=== PATIENT | female | born 1965 | race American Indian/Alaskan Native ===

== ENCOUNTER 2016-04-19 06:17 | Inpatient (IN) | payer OTHER ==
[2016-04-16 13:22] LABS: Basophils % (Auto) 0.4 % (0.0-1.8); Eosinophils % (Auto) 1.1 % (0.0-4.3); Hematocrit 32.9 % (30.3-42.9); Mean Corpuscular HGB Conc 34 % (30-34); Mean Corpuscular Hemoglobin 34 pg (28-32); Mean Corpuscular Volume 101 fl (79-97); Platelet Count 191 K/mm3 (140-440); Red Blood Count 3.28 M/mm3 (3.65-5.03); Red Cell Distribution Width 15.8 % (13.2-15.2); White Blood Count 7.4 K/mm3 (4.5-11.0)
[2016-04-16 13:29] LABS: Alanine Aminotransferase 15 units/L (7-56); Albumin 3.9 g/dL (3.9-5); Albumin/Globulin Ratio 1.6 %; Alkaline Phosphatase 96 units/L (35-129); Anion Gap 19 mmol/L; BUN/Creatinine Ratio 15.71; Bilirubin,Total 0.2 mg/dL (0.1-1.2); Blood Urea Nitrogen 11 mg/dL (7-17); Calcium 9.1 mg/dL (8.4-10.2); Carbon Dioxide 25 mmol/L (22-30); Chloride 101.3 mmol/L (98-107); Glucose 85 mg/dL (65-100); INR 0.99 (0.87-1.13); Potassium 3.3 mmol/L (3.6-5.0); Sodium 142 mmol/L (137-145); Total Protein 6.4 g/dL (6.3-8.2)
--- NOTE | 2016-04-16 13:31 | Anesthesia Consultation ---
Anesthesia Consult and Med Hx Date of service: 04/16/16 - Airway Anesthetic Teeth Evaluation: Good ROM Head & Neck: Adequate Mental/Hyoid Distance: Adequate Mallampati Class: Class II Intubation Access Assessment: Probably Good - Pulmonary Exam CTA: Yes - Cardiac Exam Cardiac Exam: RRR - Pre-Operative Health Status ASA Pre-Surgery Classification: ASA3 Proposed Anesthetic Plan: General Nerve Block: PEC - Pre-Anesthesia Comment Pre-Anesthesia Comments: 04/06/2016 ECHO: EF 55-60%. ECG: NSR. - Pulmonary Hx Smoking: Yes (CIGARETTES < 1/2 PPD X 22 YRS, QUIT 4 YRS AGO) Hx Asthma: Yes Hx Sleep Apnea: No - Cardiovascular System Hx Hypertension: Yes (FOR 15+ YRS) - Central Nervous System Hx Psychiatric Problems: Yes (anxiety) - Other Systems Hx Cancer: Yes (RIGHT BREAST, DX: 10/2015, Chemo 03/2016) - Additional Comments Anesthesia Medical History Comments: NAC
--- NOTE | 2016-04-16 13:59 | XRay Report ---
CHEST 2 VIEWS INDICATION: Bilateral breast cancer. COMPARISON: 05/22/2011 FINDINGS: PA and lateral chest radiographs demonstrate normal cardiomediastinal silhouette. Slight left lung base scarring and left subclavian port tip near the confluence of the brachiocephalic veins is new. Otherwise clear lungs. Minimal aortic knob calcifications. Mild eventration of the right hemidiaphragm anteriorly. Slight thoracic spine degenerative spurring. CONCLUSION: No acute chest process with few incidental findings, as above. Thank you for the opportunity to participate in this patient's care.
[~2016-04-19 06:17] MED LIST: ANCEF/STERILE WATER 2 GM/20 ML IV NR; HYDROGEN PEROXIDE ONE; LACTATED RINGERS 1,000 ML IV SCH; LACTATED RINGERS 1,000 ML ONE; NACL 0.9% 500 ML 500 ML IV NR; NACL BACTERIOSTATIC INFILTRATI ONE; NEURONTIN PO NR; PEPCID PO NR; PROAIR IH NR; SUBLIMAZE IV NR; VERSED IV NR
[2016-04-19] MEDS ORDERED: DIPRIVAN 10 MG/ML IV ONE (06:39)
[2016-04-19] MEDS ORDERED: DILAUDID ONE ×3 (06:39→16:14)
[2016-04-19] MEDS ORDERED: XYLOCAINE MPF 2% ONE (06:42)
[2016-04-19] MEDS ORDERED: ZEMURON IV ONE ×3 (06:43→11:55)
[2016-04-19] MEDS ORDERED: BLOXIVERZ ONE (06:45)
[2016-04-19] MEDS ORDERED: ROBINUL ONE (06:45)
[2016-04-19] MEDS ORDERED: LACTATED RINGERS 1,000 ML IV SCH (07:00)
[2016-04-19] MEDS ORDERED: ANCEF/STERILE WATER 2 GM/20 ML IV NR ×2 (07:00→19:00)
--- NOTE | 2016-04-19 07:02 | Anesthesia Day of Surgery ---
Anesthesia Day of Surgery - Day of Surgery Patient Examined: Yes Patient H&P Reviewed: Yes Patient is NPO: Yes Cardiac Clearance: Yes (cardiac notes)
[2016-04-19] MEDS ORDERED: LOVENOX SUB-Q NR (07:22)
[2016-04-19] MEDS ORDERED: NACL P/F VIAL (10 ML) 10 ML ONE ×2 (07:32→10:01)
[2016-04-19] MEDS ORDERED: TRANSDERM-SCOP TD NR (08:00)
[2016-04-19] MEDS ORDERED: ALBURX 25% (ALBUMIN) IV NR (08:00)
[2016-04-19] MEDS ORDERED: HEPARIN 10,000 UNITS/10 ML IV ONE (08:36)
[2016-04-19] MEDS ORDERED: NACL 0.9% IR ONE (08:36)
[2016-04-19] MEDS ORDERED: PAPAVERINE IV ONE (08:36)
[2016-04-19] MEDS ORDERED: NACL P/F VIAL (10 ML) INFILTRATI ONE (08:36)
[2016-04-19] MEDS ORDERED: BACITRACIN TP ONE (08:36)
[2016-04-19] MEDS ORDERED: MARCAINE 0.25% INFILTRATI ONE (08:36)
[2016-04-19] MEDS ORDERED: NACL 0.9% 500 ML IV ONE (08:36)
[2016-04-19] MEDS ORDERED: WATER FOR IRRIG STERILE IR ONE (08:36)
[2016-04-19] MEDS ORDERED: ZOFRAN ONE (09:03)
[2016-04-19] MEDS ORDERED: LACTATED RINGERS 1,000 ML ONE ×2 (10:02→14:40)
[2016-04-19] MEDS ORDERED: ANCEF ONE ×2 (10:02→16:06)
[2016-04-19] MEDS ORDERED: NACL 0.9% 1000 ML 1,000 ML ONE ×3 (10:02→14:41)
--- NOTE | 2016-04-19 12:20 | Short Stay Summary ---
Short Stay Documentation Date of service: 04/19/16 - History H&P: obtained from office - Allergies and Medications Current Medications: Allergies No Known Allergies Allergy (Unverified 11/21/15 10:04) Home Medications Medication Instructions Recorded Confirmed Last Taken Type LORazepam [Ativan] 1 mg PO QDAY PRN 11/21/15 04/08/16 04/19/16 05:15 History Losartan/Hydrochlorothiazide 1 tab PO QDAY 11/21/15 04/08/16 04/19/16 05:15 History [Losartan-Hctz 100-12.5 mg Tab] amLODIPine [Norvasc] 2.5 mg PO DAILY 11/21/15 04/08/16 04/19/16 05:15 History Ergocalciferol (Vitamin D2) 50,000 mg PO 1XW 11/26/15 04/19/16 04/18/16 History [Vitamin D2] Escitalopram [Lexapro] 10 mg PO DAILY 04/08/16 04/08/16 Unknown History Active Medications Cefazolin Sodium (Ancef/Sterile Water 2 Gm/20 Ml) 2 gm IV PREOP NR Stop: 04/19/16 23:59 Enoxaparin Sodium (Lovenox) 40 mg SUB-Q ONCE NR Stop: 04/19/16 16:00 Last Admin: 04/19/16 07:31 Dose: 40 mg Fentanyl (Sublimaze) 100 mcg IV ONCE NR Stop: 04/19/16 23:59 Gabapentin (Neurontin) 300 mg PO PREOP NR Stop: 04/19/16 23:59 Last Admin: 04/19/16 06:52 Dose: 300 mg Lactated Ringer's (Lactated Ringers) 1,000 mls @ 75 mls/hr IV DIRECT ELIZABETH Last Admin: 04/19/16 07:00 Dose: 75 mls/hr Scopolamine (Transderm-Scop) 1 each TD PREOP NR Stop: 04/22/16 07:59 Last Admin: 04/19/16 07:30 Dose: 1 each - Brief post op/procedure progress note Date of procedure: 04/19/16 Pre-op diagnosis: 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 Loving) Follow up with: PERRY HIGUERA MD [Primary Care Provider] - 7 Days ROGER ROQUE MD [Staff Physician] - 7 Days
--- NOTE | 2016-04-19 12:34 | Operative Report ---
Operative Report Operative Report: Date of procedure: April 19, 2016 Pre-operative diagnosis: Multicentric right breast cancer of the upper outer quadrant Post-operative diagnosis: Same Procedure name(s): Left total mastectomy and right total mastectomy with right sentinel lymph node biopsy Surgeon: Torie Cao M.D. Cell Room Supervisor: Mr. Velasco Anesthesia: Gen. Findings: Right sentinel lymph node biopsy with negative findings for metastasis on frozen Complications: None Disposition: Operating room followed by Dr. Loving for VIV flap Indications for operative procedure: This is a 50-year-old postmenopausal abdomen [place] lady with multicentric right breast cancer of the upper outer quadrant. She completed neoadjuvant chemotherapy and was in need of surgical intervention. Patient wished to proceed with a prophylactic left total mastectomy as well and immediate plastic reconstructive surgery by Dr. Loving with VIV flap. Procedure in detail: Patient was taken to the operating and was laid supine. Gen. was administered. Bilateral breast and axilla were prepped and draped in the normal sterile operative fashion. Breast was injected at the right nipple with radioisotope. Timeout was performed. First began with the left breast. A skin incision was made around the nipple areolar complex with a 10 blade knife. The subcutaneous tissues were opened withthe aid of Bovie cautery. First began with raising of superior flap to the level of the clavicle followed by the lateral flap to the level of the latissmus muscle, medial flap to the level of the sternum and inferior flap to the level of the inframammary fold. The breast was appropriately removed from the pectoralis muscle with the aid of Bovie cautery. Hemostasis was obtained. Attention was then taken towards the right breast. Gamma probe was inserted into the axilla with identification of the sentinel lymph node. A skin incision was made around the nipple areolar complex with a 10 blade knife with the subcutaneous tissues opened with the aid of the Bovie cautery. First began with raising of superior flap to the level of the clavicle followed by raising of the medial flap to the level of the sternum and lateral flap to the latissmus muslce. Then proceeded with identification of the sentinel lymph node. The gamma probe was inserted into the axilla with sentinel lymph node appropriately identified and dissected free with the aid of Bovie cautery. Additional lymph node was also noted as well and was dissected free. Frozen section from both lymph nodes with findings negative for malignancy of 3 sentinel lymph nodes identified. Then continued with raising of the inferior flap to the level of the inframammary fold. The breast was appropriately removed from the pectoralis muscle without incident. Dr. Loving proceeded with bilateral VIV flap.
[2016-04-19] MEDS ORDERED: DECADRON ONE (15:38)
[2016-04-19] MEDS ORDERED: NARCAN 0.4 MG/1 ML IV PRN (16:52)
[2016-04-19] MEDS ORDERED: SODIUM CHLORIDE FLUSH SYRINGE 10 ML IV PRN (16:52)
[2016-04-19] MEDS ORDERED: ZOFRAN IV PRN (16:52)
[2016-04-19] MEDS ORDERED: TYLENOL PO PRN (16:52)
[2016-04-19] MEDS ORDERED: REGLAN PO PRN (16:52)
[2016-04-19] MEDS ORDERED: BENADRYL PO PRN (16:52)
[2016-04-19] MEDS ORDERED: HEPARIN SUB-Q ONE (17:15)
[2016-04-19] MEDS: DILAUDID PCA 6MG/30ML IV SCH (17:33)
--- NOTE | 2016-04-19 17:41 | Post Anesthesia Evaluation ---
- Post Anesthesia Evaluation Patient Participated: Yes Airway Patent: Yes Stable Respiratory Function: Yes Temp > 96.8F: Yes Pain Manageable: Yes Adequeate Hydration: Yes Anesthesia Complications: No Block Receding Appropriately: Not Applicable
[2016-04-19] MEDS ORDERED: ECOTRIN PO ONE ×3 (18:21→19:00)
[2016-04-19] MEDS ORDERED: ASPIRIN PO SCH (19:00)
[2016-04-19] MEDS ORDERED: ASPIRIN PO ONE (20:20)
[2016-04-19] MEDS: LACTATED RINGERS 1,000 ML IV SCH (20:30)
--- NOTE | 2016-04-19 21:02 | Admit Criteria Form ---
Admission Criteria Documentation: AMBULATORY SURGERY EXCEPTION CRITERIA Ambulatory Surgery Exception Criteria ( Place 'X' for any and all applicable criteria): Surgery or procedure performed on ambulatory basis may require inpatient stay for[A] ANY ONE of the following(1)(2)(3)(4)(5)(6)(7)(8)(9): [X] I. A preoperative situation, condition, or finding that warrants inpatient stay as indicated by ANY ONE of the following: [] a) Inpatient care needed because of severity of a disease or condition rather than the surgery (eg, severe cardiac or respiratory disease, severe infection) (15) (16 ) (17) (18) [] b) Emergent procedure (eg, angioplasty for acute ischemia)(19) [] c) Complex surgical approach or situation as indicated by ANY ONE of the following(3): [] i) Open approach needed instead of usual endoscopic, transcatheter, or other less invasive procedure [] ii) Difficult approach because of previous operation [] iii) Airway monitoring required after open neck procedures(20)(21) [] iv) Large mass requiring unusually extensive dissection [] v) Additional complicating feature requiring inpatient care (eg, drain management)(22(23): [X] d) Major surgery in a pt with high anesthetic risk as indicated by ANY ONE of the following (2)(3)(5)(7)(8): [X] i) ASA risk class III or higher (severe systemic disease impairing function) [D] [] ii) Advanced age (eg, older than 85 years)(14)(24) [] iii) Symptomatic heart failure(25) [] iv) Symptomatic asthma or COPD(8)(21) [] v) Morbid obesity with hemodynamic or respiratory problems(20)( 21)(26)(27) [] vi) Obstructive sleep apnea(20)(21) [] vii) Former premature infants who are younger than 60 weeks [] viii) High risk for severe postoperative abnormalities (eg, severe postoperative hypocalcemia after parathyroidectomy for severe hyperparathyroidism)(27)( 28) [] ix) Unstable angina(25) [] e) Drug-related risk requiring inpatient stay as indicated by ANY ONE of the following(5)(10)(14)(32)(33) [] i) Procedure requires discontinuing drugs or other therapy (eg , antiarrhythmic medication, antiseizure medication), which necessitates inpatient observation or treatment.(18)(31) [] ii) Major surgery and high risk drug use as indicated by ANY ONE of the following: [] 1) Active abuse of cocaine or similar drug [] 2) Monoamine oxidase inhibitor use [] 3) Other drug identified as posing risk [] f) Inadequate outpatient care situation as indicated by ANY ONE of the following(5)(10)(14)(32)(33) [] i) Patient lives remote from medical facility and procedure has urgent complication potential, and temporary nearby residence cannot be arranged [] ii) Patient will have postprocedure incapacitation and inadequate assistance at home, or alternative level of care cannot be arranged. [] iii) Patient will have long general anesthesia or procedure side effect resolution time, and competent person to stay with patient on first postoperative night at home or alternative level of care cannot be arranged. []iv) Other inadequate outpatient situation that cannot be handled by other means [] II. A perioperative event, condition, or finding that warrants inpatient stay as indicated by ANY ONE of the following (1)(2)(3): [] a) Inadequate physiologic recovery: cardiovascular, respiratory, or hemodynamic status not normal or near preoperative baseline(18) [] b) Hemodynamic instability [] c) Patient not alert with near normal or baseline mental status [] d) Temperature not normal or as expected and not appropriate for outpatient treatment of condition [] e) Ambulatory or appropriate activity level status not yet achieved post procedure [E](34)(35)(36) [] f) Operative site not appropriate (eg, unexpected or excessive drainage or bleeding) [] g) Postoperative effects not resolved or adequately managed (eg, significant pain or vomiting not appropriate for outpatient or next level of care)(10)(12) [] h) Complicating features requiring inpatient care as indicated by ANY ONE of the following(37): [] i) Severe complications of procedure (eg, bowel injury, airway compromise, vascular injury,severe hemorrhage) [] ii) Extensive (eg, dissection far beyond usual scope of procedure ) or prolonged (eg, 120 minutes beyond usual) surgery needed requiring inpatient postoperative care [] iii) Conversion to an open or complex procedure that requires inpatient care (eg, open vs laparoscopic cholecystectomy, abdominal vs vaginal hysterectomy)(38) [] iv) Comorbid condition or test result identified during or post procedure that requires inpatient care (7) [] v) Malignant hyperthermia(30) [] vi) Other complicating feature requiring inpatient care(22)(23) Inpatient stay may be needed until ALL of the following are present (1)(2)(3)(4) (5)(6)(10)(14)(33)(40): []a) Physiologic recovery: cardiovascular, respiratory, and hemodynamic status normal or near preoperative baseline []b) Hemodynamic stability []c) Patient alert, with near normal or baseline mental status []d) Temperature appropriate: patient afebrile or temperature appropriate for outpt treatment of condition []e) Activity level appropriate: ambulatory or appropriate activity level post procedure []f) Operative site appropriate as indicated by ALL of the following: []i) Site dry or with expected drainage []ii) Any blood noted is as expected for procedure. []g) Postoperative effects resolved or managed as indicated by ALL of the following: []i) Pain management appropriate for outpatient (or next level of) care(10) []ii) Minimal nausea and vomiting: if present, successfully treated with oral medication(12) []iii) Headache, dizziness, or drowsiness (if present) are mild. []h) Voiding status acceptable as indicated by ANY ONE of the following: []i) Voiding spontaneously []ii) No voiding but instructions given for follow-up in 6 to 8 hours []iii) Urinary catheter in place, and instructions given for follow-up []i) Complicating features requiring inpatient care manageable at a lower level of care(37) []j) Comorbid conditions manageable at a lower level of care(37) The original [employer] content created by [employer] has been revised. The portions of the content which have been revised are identified through the use of italic text or in bold, and [employer] [email or web address] has neither reviewed nor approved the modified material. All other unmodified content is copyright [employer]. Please see references footnoted in the original [employer] edition 2016 Admission Criteria Met: Yes
[2016-04-19] MEDS: COLACE PO SCH (22:00)
[2016-04-20] MEDS: LACTATED RINGERS 1,000 ML IV SCH ×4 (02:00→20:20)
[2016-04-20 07:47] LABS: Hematocrit 26.1 % (30.3-42.9); Hemoglobin 8.6 gm/dl (10.1-14.3); Mean Corpuscular HGB Conc 33 % (30-34); Mean Corpuscular Hemoglobin 33 pg (28-32); Mean Corpuscular Volume 100 fl (79-97); Platelet Count 164 K/mm3 (140-440); Red Cell Distribution Width 15.3 % (13.2-15.2); White Blood Count 12.5 K/mm3 (4.5-11.0)
[2016-04-20 08:08] LABS: Anion Gap 14 mmol/L; BUN/Creatinine Ratio 11.42; Blood Urea Nitrogen 8 mg/dL (7-17); Calcium 8.4 mg/dL (8.4-10.2); Carbon Dioxide 26 mmol/L (22-30); Chloride 101.9 mmol/L (98-107); Glucose 108 mg/dL (65-100); Potassium 3.6 mmol/L (3.6-5.0); Sodium 138 mmol/L (137-145)
[2016-04-20] MEDS: ASPIRIN PO SCH (10:07)
[2016-04-20] MEDS: COLACE PO SCH ×2 (10:07→21:05)
[2016-04-20] MEDS: LOVENOX SUB-Q SCH (10:08)
--- NOTE | 2016-04-20 10:09 | Consultation ---
History of Present Illness Consult date: 04/20/16 Requesting physician: BRENDA SAMUEL History of present illness: PULMONARY CONSULT NOTE (Full dictation # [id number]) Please see dictated notes for full details Medications and Allergies Allergies Allergy/AdvReac Type Severity Reaction Status Date / Time No Known Allergies Allergy Unverified 11/21/15 10:04 Home Medications Medication Instructions Recorded Confirmed Last Taken Type LORazepam [Ativan] 1 mg PO QDAY PRN 11/21/15 04/08/16 04/19/16 05:15 History Losartan/Hydrochlorothiazide 1 tab PO QDAY 11/21/15 04/08/16 04/19/16 05:15 History [Losartan-Hctz 100-12.5 mg Tab] amLODIPine [Norvasc] 2.5 mg PO DAILY 11/21/15 04/08/16 04/19/16 05:15 History Ergocalciferol (Vitamin D2) 50,000 mg PO 1XW 11/26/15 04/19/16 04/18/16 History [Vitamin D2] Escitalopram [Lexapro] 10 mg PO DAILY 04/08/16 04/08/16 Unknown History Active Meds: Active Medications Acetaminophen (Tylenol) 650 mg PO Q6H PRN PRN Reason: Pain MILD(1-3)/Fever >100.5/[place] Aspirin (Aspirin) 325 mg PO QDAY ELIZABETH Diphenhydramine HCl (Benadryl) 25 mg PO Q8H PRN PRN Reason: Itching Docusate Sodium (Colace) 100 mg PO BID ELIZABETH Last Admin: 04/19/16 22:00 Dose: Not Given Enoxaparin Sodium (Lovenox) 40 mg SUB-Q QDAY ELIZABETH Hydromorphone/Sodium Chloride (Dilaudid Algebraist 6mg/30ml) 0 mg IV DIRECT ELIZABETH PRN Reason: Protocol Last Admin: 04/19/16 17:33 Dose: 0.2 cartstart Lactated Ringer's (Lactated Ringers) 1,000 mls @ 150 mls/hr IV DIRECT ELIZABETH Last Admin: 04/20/16 02:00 Dose: 150 mls/hr Metoclopramide HCl (Reglan) 10 mg PO Q6H PRN PRN Reason: Nausea And Vomiting Naloxone HCl (Narcan 0.4 Mg/1 Ml) 0.1 mg IV Q2MIN PRN PRN Reason: Res Rate </= 8 or 02 SAT < 92% Ondansetron HCl (Zofran) 4 mg IV Q8H PRN PRN Reason: N/V unrelieved by Abhilash Last Admin: 04/19/16 20:30 Dose: 4 mg Oxycodone/Acetaminophen (Percocet 5/325) 2 tab PO Q6H PRN PRN Reason: Pain, Moderate (4-6) Scopolamine (Transderm-Scop) 1 each TD PREOP NR Stop: 04/22/16 07:59 Last Admin: 04/19/16 07:30 Dose: 1 each Sodium Chloride (Sodium Chloride Flush Syringe 10 Ml) 10 ml IV PRN PRN PRN Reason: LINE FLUSH Physical Examination Vital signs: Vital Signs Temp Pulse Resp BP 99.0 F 92 H 20 110/82 04/16/16 12:24 04/16/16 12:24 04/16/16 12:24 04/16/16 12:24 Results - Laboratory Findings CBC and BMP: 04/20/16 07:32 04/20/16 07:32 PT/INR, D-dimer PT 13.0 Sec. (12.2-14.9) 04/16/16 12:06 INR 0.99 (0.87-1.13) 04/16/16 12:06 Abnormal lab findings: Abnormal Labs 04/16/16 04/16/16 04/16/16 12:06 12:06 12:35 WBC RBC 3.28 L Hgb Hct MCV 101 H MCH 34 H RDW 15.8 H [place] % (Auto) 9.5 H Potassium 3.3 L Glucose Crossmatch See Detail 04/20/16 04/20/16 07:32 07:32 WBC 12.5 H RBC 2.60 L Hgb 8.6 L Hct 26.1 L MCV 100 H MCH 33 H RDW 15.3 H [place] % (Auto) Potassium Glucose 108 H Crossmatch
[2016-04-20] MEDS ORDERED: ECOTRIN PO ONE (17:45)
[2016-04-20] MEDS: DILAUDID PCA 6MG/30ML IV SCH (17:49)
--- NOTE | 2016-04-20 21:11 | Progress Note ---
Assessment and Plan This is a 50 year old postmenopausal lady with multicentric right breast cancer of the upper outer quadrant status post left total mastectomy and right total mastectomy with SLNB followed by VIV flap. No acute events overnight and pain controlled. 1. Neuro-continue with pain mgt. 2. Resp-incentive spirometry. Pulmonary consulted as well and following. 3. Cardiac-hemodynamically stable. 4. GI-clears and Dr. Loving managing diet. Abdominal wound vac in place to suction. 5. -d/c san once ambulating per Dr. Loving. 6. ID-no acute events, postoperative antibiotics. 7. Heme-H/H will continue to monitor. On DVT prophylasis. Breast flaps with incisions healing well and skin well perfused. 8. Endocrine-continue to monitor blood glucose. 9. Disposition-continue to monitor breast flaps, skin well perfused. ICU care per Dr. Loving. - Patient Problems (1) Breast cancer in female Current Visit: Yes Status: Acute Qualifiers: Breast location: upper outer quadrant of breast Laterality: right Qualified Code(s): C50.411 - Malignant neoplasm of upper-outer quadrant of right female breast (2) Breast cancer greater than or equal to 2 cm in greatest dimension Current Visit: Yes Status: Acute Plan to address problem: Yes, bilateral total mastectomy and right SLNB (3) Hypertension Current Visit: Yes Status: Chronic Qualifiers: Hypertension type: essential hypertension Qualified Code(s): I10 - Essential (primary) hypertension Plan to address problem: Yes, resume home meds and monitor closely Subjective Date of service: 04/20/16 Principal diagnosis: Multicentric right breast cancer Interval history: cThis is a 50 year old postmenopausal lady with multicentric right breast cancer of the upper outer quadrant status post left total mastectomy and right total mastectomy with SLNB followed by VIV flap on April 19, 2016. Objective - Constitutional Vitals: Vital Signs - 12hr 04/20/16 04/20/16 04/20/16 09:30 10:00 10:30 Temperature Pulse Rate 118 H 119 H Respiratory 13 17 Rate Blood Pressure 128/72 125/68 125/68 O2 Sat by Pulse 99 98 98 Oximetry 04/20/16 04/20/16 04/20/16 11:08 11:30 12:00 Temperature 99.0 F Pulse Rate 145 H 126 H 123 H Respiratory 15 17 Rate Blood Pressure 125/68 157/94 157/94 O2 Sat by Pulse 99 99 Oximetry 04/20/16 04/20/16 04/20/16 12:30 13:00 13:30 Temperature Pulse Rate 117 H 120 H 118 H Respiratory 14 12 14 Rate Blood Pressure 148/100 147/96 158/104 O2 Sat by Pulse 100 100 100 Oximetry 04/20/16 04/20/16 04/20/16 14:00 14:30 15:00 Temperature Pulse Rate 111 H 118 H 112 H Respiratory 20 17 13 Rate Blood Pressure 149/91 155/91 158/96 O2 Sat by Pulse 99 100 100 Oximetry 04/20/16 04/20/16 04/20/16 15:30 15:47 16:00 Temperature 98.6 F Pulse Rate 114 H 115 H Respiratory 9 L 14 Rate Blood Pressure 158/96 136/63 O2 Sat by Pulse 100 98 Oximetry 04/20/16 04/20/16 04/20/16 16:15 16:30 17:00 Temperature Pulse Rate 116 H 114 H Respiratory 14 16 Rate Blood Pressure 136/63 136/63 O2 Sat by Pulse 98 93 99 Oximetry 04/20/16 04/20/16 04/20/16 17:30 18:00 19:00 Temperature Pulse Rate 121 H 120 H 122 H Respiratory 19 17 16 Rate Blood Pressure 144/72 144/72 125/56 O2 Sat by Pulse 87 97 97 Oximetry 04/20/16 04/20/16 04/20/16 19:20 19:30 20:00 Temperature 100.4 F H Pulse Rate 122 H 123 H Respiratory 12 13 15 Rate Blood Pressure 125/56 132/64 O2 Sat by Pulse 90 93 Oximetry General appearance: Present: no acute distress - EENT Eyes: PERRL, EOM intact ENT: hearing intact, clear oral mucosa, dentition normal, other (slight swelling of right upper lip) Ears: bilateral: normal - Neck Neck: supple, normal ROM - Respiratory Respiratory effort: normal Respiratory: bilateral: CTA - Breasts Breasts: other (Bilateral breast mounds at VIV flap with incisions healing well , skin well perfused, no fluid collection) - Cardiovascular Rhythm: regular Extremities: no ischemia, pulses intact, pulses symmetrical, No edema, normal temperature, normal color, Full ROM - Gastrointestinal General gastrointestinal: Present: soft, other (wound vac in place to good suction; appropriate tenderness) Rectal Exam: deferred - Genitourinary Female genitourinary: deferred - Integumentary Integumentary: clear, warm, dry - Musculoskeletal Musculoskeletal: strength equal bilaterally - Neurologic Neurologic: CNII-XII intact, moves all extremities - Psychiatric Psychiatric: appropriate mood/affect, intact judgment & insight, memory intact, cooperative - Labs CBC & Chem 7: 04/20/16 07:32 04/20/16 07:32 Labs: Abnormal lab results 04/20/16 04/20/16 Range/Units 07:32 07:32 WBC 12.5 H (4.5-11.0) K/mm3 RBC 2.60 L (3.65-5.03) M/mm3 Hgb 8.6 L (10.1-14.3) gm/dl Hct 26.1 L (30.3-42.9) % MCV 100 H (79-97) fl MCH 33 H (28-32) pg RDW 15.3 H (13.2-15.2) % Glucose 108 H (65-100) mg/dL
--- NOTE | 2016-04-21 00:15 | Consultation ---
CONSULTING PHYSICIAN: Arsen Cook MD. REASON FOR CONSULTATION: Need for ICU bed, status post mastectomy with VIV flap. CHIEF COMPLAINT AND HISTORY OF PRESENT ILLNESS: The patient is a 50-year-old -Swedish female with past medical history indeed significant for diagnosis of a breast cancer bilateral. She was admitted to the hospital for an elective bilateral mastectomy and reconstruction. After the procedure which included the placement of a VIV flap that needs really one-on-one nursing and frequent monitoring to ensure flap viability, she was brought into the intensive care unit. She was not hypotensive or septic looking at the time. When I stopped by to see her, she was sitting up in bed. She stated her pain was well controlled. She denied nausea, vomiting, or overt aspiration. She has about a [id number]-[id number] tobacco smoking history, told me she quit smoking in 2011. That really is as much of the history of this presentation as I have. PAST MEDICAL HISTORY: Includes a history of breast cancer, history of essential hypertension as well as hyperlipidemia, also a history of palpitations. PAST SURGICAL HISTORY: She had a port placed in the left upper anterior chest for IV administration on 11/26/2015. MEDICATIONS: She was on at the time I stopped by to see her, according to the medication administration record included the following: Tylenol 650 mg p.o. q. 6 hours p.r.n. mild pain, aspirin 325 mg p.o. daily, p.r.n. Benadryl, docusate sodium 100 mg p.o. b.i.d., Lovenox 40 mg subcutaneous daily, Dilaudid CLINIC DIRECTOR pump, lactated Ringer's was going at 150 mL per hour, Reglan 10 mg p.o. q. 6 hours p.r.n. nausea and vomiting, Zofran 4 mg IV q. 8 hours p.r.n. nausea and vomiting, Percocet 5/325 two tablets p.o. q. 6 hours p.r.n. pain, scopolamine patch transdermally she received preop. ALLERGIES: No known drug allergies. DIET: Slightly obese. Denies significant weight loss or gain in the preceding few weeks to months. FAMILY AND SOCIAL HISTORY: Lives in the community. Ten pack year tobacco smoking history. No current alcohol, tobacco, or illicit drug use or abuse. REVIEW OF SYSTEMS: No loss of consciousness. No new onset seizures. No new onset focal weakness. Denies gross hematochezia or melena. Denies gross hematuria or dysuria. No hematemesis. No hemoptysis. No palpitations. Complete review of systems obtained. Pertinent positives and/or negatives as in body of history above, otherwise noncontributory. PHYSICAL EXAMINATION: VITAL SIGNS: At presentation, she was afebrile, temperature 98.5, pulse 91, respiratory rate 16, blood pressure 115/68. Oxygen sats were 96%, inspired oxygen concentration was not recorded. HEAD, EYES, EARS, NOSE, AND THROAT: Pupils are equal, round, reactive to light. Extraocular muscle movements were intact. Pupils about 3 mm bilaterally. Grossly, no palpable lymph nodes in the supraclavicular, submandibular, or axillary lymph node chains. LUNGS: Auscultation of both lung chapin unremarkable. Lungs are clear bilaterally. HEART: Heart sounds 1 and 2 are heard, regular rate and rhythm at the time of my evaluation. ABDOMEN: Soft, bowel sounds are positive, nontender. EXTREMITIES: Without overt digital clubbing, cyanosis, or pedal edema. NEUROLOGIC: The exam was grossly nonfocal. LABORATORY DATA: From my review are as follows: White cell count 12,500, hemoglobin 8.6, hematocrit 26.1, platelet 164. INR was 0.99 on the third, 3 days ago. Serum sodium 138, potassium 3.6, chloride 102, bicarbonate 26, BUN 8, creatinine 0.7, glucose 108. RADIOGRAPHIC STUDIES: I am pulling up the film. I have reviewed the radiologist's interpretation and his impression is that there were no acute changes. She does have the subclavian port tip near the confluence of brachiocephalic veins. ASSESSMENT AND PLAN: We have a middle-aged lady, status post uneventful bilateral mastectomy with flap placement and being observed in the ICU really for frequent checks, it is unclear how long this needs to go on, I will defer to the surgeon. If once it is possible that the monitoring can be done out of the Intensive Care Unit, she will be transferred out. Otherwise, she is stable at this point, no major critical issues. I will add GI prophylaxis to her medications and flu and pneumonia vaccination will be per protocol. Thank you very much for the consult. We will follow along. We will make further recommendations as picture progresses/becomes clearer. JOB# [id number] ISRAEL/SHELLY
[2016-04-21] MEDS: LACTATED RINGERS 1,000 ML IV SCH ×2 (03:47→09:03)
[2016-04-21] MEDS: PEPCID PO SCH (09:02)
[2016-04-21] MEDS: LOVENOX SUB-Q SCH (09:02)
[2016-04-21] MEDS: ASPIRIN PO SCH (09:02)
[2016-04-21] MEDS: COLACE PO SCH ×2 (09:02→22:02)
--- NOTE | 2016-04-21 10:30 | Progress Note ---
Assessment and Plan - Patient Problems (1) Breast cancer greater than or equal to 2 cm in greatest dimension Current Visit: Yes Status: Acute Plan to address problem: - s/p mastectomy - s/p reconstructive surgery - switch to oral analgesia and d/c HEAT TREAT OPERATOR pump - ambulate - discharge once OK with attending (2) Hypertension Current Visit: Yes Status: Chronic Qualifiers: Hypertension type: essential hypertension Qualified Code(s): I10 - Essential (primary) hypertension Plan to address problem: - resume home losaartan/HCTZ Subjective Date of service: 04/21/16 Principal diagnosis: Multicentric right breast cancer Interval history: Seen and examined at bedside; 24 hour events reviewed; nursing and respiratory care staff consulted; no adverse overnight events reported to me; resting peacefully; ambulated earlier; no N/V/F/C; no acute chest pains or increased SOB Objective Vital Signs - 12hr 04/20/16 04/20/16 04/20/16 22:30 23:00 23:31 Temperature Pulse Rate 122 H 119 H 113 H Pulse Rate [ From Monitor] Respiratory 11 L 20 17 Rate Blood Pressure 116/47 116/47 103/57 O2 Sat by Pulse 96 93 91 Oximetry 04/21/16 04/21/16 04/21/16 00:00 00:31 01:00 Temperature 99.7 F H Pulse Rate 117 H 110 H 111 H Pulse Rate [ 118 H From Monitor] Respiratory 15 16 12 Rate Blood Pressure 113/62 113/62 116/52 O2 Sat by Pulse 97 90 94 Oximetry 04/21/16 04/21/16 04/21/16 01:31 02:00 02:07 Temperature Pulse Rate 105 H 112 H 106 H Pulse Rate [ From Monitor] Respiratory 15 16 15 Rate Blood Pressure 116/52 101/54 101/54 O2 Sat by Pulse 92 92 92 Oximetry 04/21/16 04/21/16 04/21/16 02:31 03:00 03:31 Temperature Pulse Rate 104 H 110 H 108 H Pulse Rate [ From Monitor] Respiratory 16 13 16 Rate Blood Pressure 101/54 117/56 117/56 O2 Sat by Pulse 90 95 93 Oximetry 04/21/16 04/21/16 04/21/16 03:49 03:52 04:00 Temperature 98.9 F Pulse Rate 106 H Pulse Rate [ 106 H From Monitor] Respiratory 14 13 Rate Blood Pressure 123/60 O2 Sat by Pulse 98 Oximetry 04/21/16 04/21/16 04/21/16 04:31 05:00 06:00 Temperature Pulse Rate 108 H 112 H 109 H Pulse Rate [ From Monitor] Respiratory 17 19 18 Rate Blood Pressure 123/60 117/60 122/49 O2 Sat by Pulse 95 96 92 Oximetry 04/21/16 04/21/16 04/21/16 07:00 07:05 08:00 Temperature 100.3 F H Pulse Rate 117 H 114 H Pulse Rate [ From Monitor] Respiratory 10 L 14 15 Rate Blood Pressure 128/63 128/60 O2 Sat by Pulse 93 94 Oximetry 04/21/16 09:00 Temperature Pulse Rate 125 H Pulse Rate [ From Monitor] Respiratory 17 Rate Blood Pressure 123/66 O2 Sat by Pulse 95 Oximetry Constitutional: no acute distress Eyes: non-icteric ENT: oropharynx moist Neck: supple, no lymphadenopathy Effort: normal Ascultation: Bilateral: clear Cardiovascular: regular rate and rhythm Gastrointestinal: normoactive bowel sounds, soft, non-tender, non-distended Integumentary: normal Extremities: no cyanosis, no edema, pulses normal, no ischemia or petechiae Neurologic: normal mental status, non-focal exam Psychiatric: mood appropriate, affect normal CBC and BMP: 04/20/16 07:32 04/20/16 07:32 ABG, PT/INR, D-dimer: PT/INR, D-dimer PT 13.0 Sec. (12.2-14.9) 04/16/16 12:06 INR 0.99 (0.87-1.13) 04/16/16 12:06 Abnormal lab findings: Abnormal Labs 04/16/16 04/16/16 04/16/16 12:06 12:06 12:35 WBC RBC 3.28 L Hgb Hct MCV 101 H MCH 34 H RDW 15.8 H Mcdowell % (Auto) 9.5 H Potassium 3.3 L Glucose Crossmatch See Detail 04/20/16 04/20/16 07:32 07:32 WBC 12.5 H RBC 2.60 L Hgb 8.6 L Hct 26.1 L MCV 100 H MCH 33 H RDW 15.3 H Mcdowell % (Auto) Potassium Glucose 108 H Crossmatch
[2016-04-21] MEDS: PERCOCET 5/325 PO PRN ×2 (12:58→18:09)
--- NOTE | 2016-04-21 13:00 | Progress Note ---
Subjective Date of service: 04/21/16 Principal diagnosis: Multicentric right breast cancer Interval history: POD 2 s/p bilateral mastectomies with VIV flap reconstruction AVSS looks great, ambulated today. bilateral flaps warm good color abdomen stable A/P: doing well continue Q 1 hour flap doppler checks ambulate in hallway aspirin, lovenox vitals every 4 hours regular diet dc ivf, dc box estimator anticipate discharge home tomorrow Objective - Constitutional Vitals: Vital Signs - 12hr 04/21/16 04/21/16 04/21/16 01:00 01:31 02:00 Temperature Pulse Rate 111 H 105 H 112 H Pulse Rate [ From Monitor] Respiratory 12 15 16 Rate Blood Pressure 116/52 116/52 101/54 O2 Sat by Pulse 94 92 92 Oximetry 04/21/16 04/21/16 04/21/16 02:07 02:31 03:00 Temperature Pulse Rate 106 H 104 H 110 H Pulse Rate [ From Monitor] Respiratory 15 16 13 Rate Blood Pressure 101/54 101/54 117/56 O2 Sat by Pulse 92 90 95 Oximetry 04/21/16 04/21/16 04/21/16 03:31 03:49 03:52 Temperature 98.9 F Pulse Rate 108 H Pulse Rate [ From Monitor] Respiratory 16 14 Rate Blood Pressure 117/56 O2 Sat by Pulse 93 Oximetry 04/21/16 04/21/16 04/21/16 04:00 04:31 05:00 Temperature Pulse Rate 106 H 108 H 112 H Pulse Rate [ 106 H From Monitor] Respiratory 13 17 19 Rate Blood Pressure 123/60 123/60 117/60 O2 Sat by Pulse 98 95 96 Oximetry 04/21/16 04/21/16 04/21/16 06:00 07:00 07:05 Temperature Pulse Rate 109 H 117 H Pulse Rate [ From Monitor] Respiratory 18 10 L 14 Rate Blood Pressure 122/49 128/63 O2 Sat by Pulse 92 93 Oximetry 04/21/16 04/21/16 04/21/16 08:00 09:00 10:57 Temperature 100.3 F H Pulse Rate 114 H 125 H 121 H Pulse Rate [ From Monitor] Respiratory 15 17 19 Rate Blood Pressure 128/60 123/66 O2 Sat by Pulse 94 95 Oximetry 04/21/16 11:00 Temperature Pulse Rate 119 H Pulse Rate [ From Monitor] Respiratory 19 Rate Blood Pressure 142/92 O2 Sat by Pulse Oximetry - Labs CBC & Chem 7: 04/20/16 07:32 04/20/16 07:32
[2016-04-21] MEDS ORDERED: COZAAR PO SCH (14:00)
--- NOTE | 2016-04-21 14:11 | Operative Report ---
PREOPERATIVE DIAGNOSIS: Bilateral acquired breast deformity. POSTOPERATIVE DIAGNOSIS: Bilateral acquired breast deformity. PROCEDURE: Immediate bilateral breast reconstruction with VIV/DCIA extension flap from abdomen stack, right internal mammary lymph node biopsy. SURGEON: Jennifer Loving M.D. REALTIME CAPTIONER: Arsen Cook M.D. ANESTHESIA: General endotracheal anesthesia. FINDINGS: Left breast 660 g, right abdominal flap to left breast is 540 g, right breast is 540 g, left abdomen flap to right breast is 520 g. ESTIMATED BLOOD LOSS: 300 mL. DRAINS: One drain in the left breast, 1 drain in the right breast, 2 drains in the abdomen. COMPLICATIONS: None. INDICATIONS: The patient is a very nice 50-year-old female who has right breast cancer. She completed neoadjuvant chemotherapy and she elected for bilateral mastectomies with autologous reconstruction with deep inferior epigastric deaf teacher flap from the abdomen for breast reconstruction. In preoperative consultation, I explained to her that the risks of the surgery include but are not limited to bleeding, infection, wound dehiscence, partial flap loss, total flap loss, vascular compromise of the flap, need for reexploration in the operating room, fat necrosis, delayed wound healing in the breast as well as the abdomen, asymmetry between the 2 breasts, hematoma, seroma, need for revisional surgery, deep vein thrombosis, pulmonary embolus, hernias and bulges in the future. We will plan on performing VIV/DCIA procedure (if we find that she has good caliber DCIA vessels intraop) for two reasons -- this would provide 2 blood supplies to the flap, making it more reliable and robust. Also, this would allow us to keep zones 3 and 4 of the deep flap tissue as well as harvest more tissue in the lateral hip and groin regions. This would decrease the risk of scarring and fat necrosis. This would be an additional 2 hours to the procedure. Given the possibility of radiation to the breast, we also need more tissue volume to accommodate for tissue contraction. DESCRIPTION OF PROCEDURE: After informed consent was obtained, the patient was marked in the preop holding area in a standing position. A skin-sparing mastectomy incision was marked out in a generous circumareolar pattern on both breasts. She was given Lovenox 40 mg subcutaneous and then taken to the operating room and placed in supine position after bilateral lower extremity SCDs were placed and IV antibiotics was given. After adequate anesthesia was achieved with general endotracheal anesthesia, the patient was prepped and draped in the usual sterile fashion and timeout was performed. The breast surgeon, Dr. Cao proceeded with the mastectomies. We began with the reconstructive portion on the abdomen at the same time. I turned my attention to the right abdomen. Dissection was taken laterally down to the fascia and carried medially. I came across 3 robust medial row perforators in alignment with each other. The SIEV was dissected for approximately 3 cm in length. There was no visible SIEA. I also located the DCIA and the DCIV and continued dissection through the fascia towards its point of origin. I felt that the vessels were of enough caliber to use for microscopic anastomosis. Dr. Cook performed a left dulce-abdominal flap dissection for the right breast, which was also 3 medial row deaf teacher deep. He will dictate this in a separate operative report. I then turned my attention to the chest once Dr. Cao completed the mastectomy. Meticulous hemostasis was achieved. I then opened the pectoralis muscle over the fourth rib down to the periosteum. Using a #10 blade, a cut was made in the periosteum. Using a [place] elevator, the periosteum was elevated off the rib circumferentially. Then, using a rongeur, the rib was resected back towards the sternum. The intercostal muscle and the periosteum were removed using Bovie cautery. Using a combination of cotton tips and bipolar, the internal mammary vessels were dissected out. Under the microscope, the vessels were further cleaned off and prepped. I then turned my attention to harvest the VIV/DCIA flap. The pedicles were ligated. The flap was then brought up to the chest, secured to the chest using 2-0 Vicryl sutures. I then laid the pedicle in good orientation with the internal mammary vessels, making sure there was no twisting or kinking. I then began the venous anastomosis. The DIEV was anastomosed to the antegrade internal mammary vein using a venous 3.0 mm blood splatter analyst. Then, the DCIV was anastomosed to the retrograde internal mammary vein using 2.0 mm blood splatter analyst. The DIEA was handsewn to the anterior grade internal mammary artery using interrupted 9-0 nylon sutures. The DCIA was handsewn to the retrograde internal mammary artery using interrupted 9-0 nylon sutures. After release of the clamps, there was bright red bleeding on the flaps. The flap was placed into the breast pocket, making sure the pedicles were in good alignment. Doppler signal was found. The rest of the flap was de-epithelialized. A 15-Swazi round drain was placed into each breast. They were sutured in place using 2-0 silk. The patient was sat upright on the table to tailor tack and inset the breast mound. The flap was inset using a combination of running and interrupted 2-0 Vicryl sutures. The mastectomy skin was tailor tacked and resected accordingly. The incision was closed using interrupted 3-0 Monocryl and running 3-0 V-Loc. Then, I turned my attention towards closing the abdomen on the right side while Dr. Cook performed the closure of the left side. The fascia was closed with interrupted 0 PDS sutures. Meticulous hemostasis was achieved. Two abdominal drains were placed into the belly. Next, we injected 0.25% Marcaine into the fascia for local pain control. The abdominal incision was closed using interrupted 2-0 PDS sutures for Igor's fascia, interrupted 3-0 Monocryl deep dermal layer, and a running 3-0 Monocryl V-Loc at the skin level. We made a new incision and brought out the umbilicus to the skin level. It was closed using interrupted 3-0 Monocryl as well as interrupted 4-0 Prolene at the skin level. There was good arterial signal of the flaps at the end of the case. The signals were marked with a 4-0 Prolene for postoperative Doppler monitoring on the flap. Sponge, needle, and instrument counts were correct at the end of the case. Xeroform was used for the new umbilicus with dry gauze. We used a Prevena incisional VAC dressing along the closed abdominal incision. There were no complications. The patient tolerated the procedure well. She was extubated and brought to the recovery unit in stable condition. JOB# [id number] FLORENCIO/SHELLY
[2016-04-21] MEDS: COZAAR PO SCH (15:00)
[2016-04-21] MEDS: HCTZ PO SCH (15:00)
--- NOTE | 2016-04-21 15:08 | Operative Report ---
PREOPERATIVE DIAGNOSIS: Bilateral acquired breast deformity. POSTOPERATIVE DIAGNOSIS: Bilateral acquired breast deformity. PROCEDURE PERFORMED: 1) Bilateral stacked VIV flap breast reconstruction. 2) Application on incisional vac 3) Internal mammary lymph node biopsy SURGEON: Arsen Cook M.D. ANESTHESIA: Jennifer Loving M.D. ESTIMATED BLOOD LOSS: 200 mL. COMPLICATIONS: None. DRAINS AND TUBES: One drain in each breast and 2 drains in the abdomen, 15-Bhutanese round JPs. SPECIMENS: Breast per Dr. Cao. INDICATIONS: Ms Benson is a very pleasant 50-year-old lady with a history of right-sided breast cancer. She was seen by Dr. Cao for oncologic resection and ultimately decided on bilateral mastectomy. She was referred to me to discuss breast reconstruction. Both autologous as well as implant placement reconstruction was discussed with the patient. The patient desired immediate reconstruction with autologous reconstruction, more specifically VIV free flaps. The procedure, its indication, potential complications were clearly explained to the patient. Any questions were answered and informed consent was obtained. The patient was identified on the date of surgery where she was marked in the preoperative area in the standing position. The consent form was once again discussed with the patient and any further questions answered. Lovenox was then given in the thigh for DVT prophylaxis and SCDs were also placed. Perioperative antibiotics were started. DESCRIPTION OF PROCEDURE: She was taken to the operating room and placed in supine position on the operating table. General endotracheal anesthesia was induced. Beltre was then inserted under sterile technique. Her chest was then prepped with chlorhexidine and she was draped in usual sterile fashion. Dr. Cao then proceeded with the bilateral mastectomies and she will be dictating this separately. During this time, Dr. Loving and I started with the abdominal portion of the procedure where a transverse incision was made above the umbilicus from ASIS to ASIS using a scalpel and this was taken down through the dermis as well as subcutaneous tissue down to abdominal wall. The anterior skin flap was then elevated in the midline up towards the xiphisternum with care to preserve any surrounding perforators to the skin flap. Once I was satisfied, I was able to close the abdomen using my previously marked incision. I then proceeded to make my inferior suprapubic incisions with care to avoid any inadvertent injury to the SIE vessels. Electrocautery was then used to dissect through the dermis as well as subcutaneous tissue. The SIEA and SIEV were identified. The SIEA was too small for microvascular anastomosis. It was then clipped and cut. The SIEV was approximately 2 mm in diameter and this was followed to length and saved as a secondary vein as needed. Laterally, the DCI vessels were identified. I thought that the DCIA was of sufficient size for microvascular anastomosis. I then proceeded to follow this to the femoral origin using careful bipolar cautery dissection. The vein was followed in a similar fashion. I then elevated a flap from lateral to medial to the lateral row perforators. There were 3 small lateral row perforators identified, but these were small in size. I therefore then split the flap in the midline and dissected from medial to lateral to the medial row perforators. There were 2 larger medial row perforators. I therefore decided to perform a stacked 2 medial impress associate VIV with a DCIA flap to improve perfusion as well as for additional volume given the body habitus of the patient. The anterior sheath was then scored at the level of the ASIS and the rectus was retracted medially, thus allowing me to identify the pedicle. Once I was satisfied the pedicle was intact for microvascular anastomosis, I then proceeded to follow the medial row perforators through the rectus muscle to the pedicle. This was done using careful bipolar cautery dissection. No fascia, no muscles were removed during my dissection. Once I had elevated the flap, Dr. Cao had completed the chest portion of the procedure. I then moved up to the right chest where hemostasis was achieved with electrocautery. The breast pocket was then shaped using 2-0 PDS sutures at the IMF as well as out laterally. The pectoralis major muscle was then split over the fourth rib and the anterior perichondrium scored. A [employer] elevator was then used to remove the anterior perichondrium off the underlying cartilage. The cartilage was then removed using a rongeur. The intervening intercostal muscle as well as the posterior perichondrium was then elevated off the underlying tissue using bipolar cautery dissection. The underlying internal mammary vessels were then identified. The surrounding fat was then cleared carefully and the vessels were then prepped for microvascular anastomosis. The microvascular clamps were applied and the blood vessels cut and irrigated with heparinized saline. I then moved to the left abdominal flap up to the right chest where I then secured this temporarily using interrupted 2-0 Vicryl sutures while aligning my blood vessels. I performed a DCIV to the retrograde IMV anastomosis using a 2 mm post secondary professional. The artery was anastomosed using interrupted 9-0 nylon sutures. The inferior epigastric vessels were then hooked up to the antegrade internal mammary vessels. The vein was anastomosed using a 3 mm post secondary professional and the artery was anastomosed using interrupted 9-0 nylon sutures. Clamps were then released and there was immediate perfusion of the flap with bright red bleeding. The flap was then de-epithelialized, leaving a central skin island and the flap was then placed in the chest and shaved using interrupted 2-0 Vicryl sutures. Skin was then closed using a 3-0 barbed suture. I then proceeded to close the abdomen first by returning the rectus muscle to its normal anatomic position using a 0 Vicryl stitch. The anterior sheath was then approximated using interrupted 0 PDS sutures in a xvcekt-mg-howhi fashion. 0.25% Marcaine was then injected in the fascia for local field block. Following this, the patient was flexed on the operating table bed and 2 drains were placed and Igor's fascia was then closed using interrupted 0 PDS sutures. Dermis was then closed using interrupted 3-0 Monocryl stitches and a running 3-0 Monocryl was utilized to close the skin. The umbilicus was then introduced through the midline using a new elliptical incision. The patient was then cleaned with peroxide solution and an incisional VAC was then placed on the abdominal incision. The patient tolerated the procedure well and was extubated without any difficulty. All sponge, needle, instrument counts were correct at the end of the procedure. The patient was taken in the PACU in stable condition. There was a strong arterial signal in both breasts at the end of the procedure and a 4-0 Prolene was utilized to raz this area. [facility]# [id number] [facility]/SHELLY GALARZA
[2016-04-21] MEDS: DILAUDID IV PRN (22:01)
[2016-04-22] MEDS: PERCOCET 5/325 PO PRN ×2 (03:29→11:55)
--- NOTE | 2016-04-22 05:32 | Physician Progress Note ---
SUBJECTIVE: The patient was seen on postop day #1 following bilateral mastectomy with VIV free flap reconstruction. The patient had no complaints and was comfortable sitting in bed. The patient was tolerating a clear liquid diet at this point with a SAP PP CONSULTANT for pain control. The patient's vitals were stable. The patient's bilateral breasts are soft, warm, and well perfused. The patient is getting hourly Doppler checks by the nurses. The labs were reviewed and this was unremarkable. The patient is postop day #1, status post bilateral VIV free flap breast reconstruction following mastectomy and is recovering nicely as expected. PLAN: For today is for her to get out of bed to a chair, for her to be advanced to clear liquid diet and to regular diet this p.m. if she tolerates this. Encouraged use her incentive spirometer. She is to continue with her aspirin and her Lovenox shots. JOB# [id number] BANNER/NTS
[2016-04-22] MEDS: COLACE PO SCH (09:59)
[2016-04-22] MEDS: PEPCID PO SCH (09:59)
[2016-04-22] MEDS: LOVENOX SUB-Q SCH (09:59)
[2016-04-22] MEDS: ASPIRIN PO SCH (09:59)
[2016-04-22] MEDS: HCTZ PO SCH (10:00)
[2016-04-22] MEDS: COZAAR PO SCH (10:00)
[2016-04-22] MEDS: DILAUDID IV PRN ×2 (10:07→11:55)
--- NOTE | 2016-04-22 10:11 | Discharge Summary ---
"Providers - Providers Date of Admission: 04/19/16 16:53 Date of discharge: 04/22/16 Attending physician: BRENDA SAMUEL MD|MAGALY GENTILE MD Primary care physician: PERRY HIGUERA Hospitalization Reason for admission: Post surgical care Condition: Good Procedures: Bilateral mastectomy with immediate VIV free flap reconstruction Hospital course: Uneventful Disposition: DISCHARGED TO HOME OR SELFCARE Core Measure Documentation - Palliative Care Palliative Care/ Comfort Measures: Not Applicable - Core Measures Any of the following diagnoses?: none Exam - Physical Exam Narrative exam: Flaps warm, soft, well perfused. Drains serosang. Incisions C/D/I - Constitutional Vitals: Temp Pulse Resp BP Pulse Ox 98.4 F 100 H 14 101/55 95 04/22/16 04:00 04/22/16 00:00 04/22/16 00:00 04/22/16 00:00 04/21/16 12:00 Plan Activity: no driving until cleared by PCP Diet: regular Wound: per your surgeon's advice Special Instructions: no heavy lifting Follow up with: PERRY HIGUERA MD [Primary Care Provider] - 7 Days ROGER ROQUE MD [Staff Physician] - 7 Days MAGALY GENTILE MD [Staff Physician] - 7 Days BRENDA SAMUEL MD [Staff Physician] - 7 Days Prescriptions: Aspirin [Aspirin TAB] 325 mg PO QDAY #30 tablet Cephalexin [Keflex] 500 mg PO Q6HR #40 capsule Docusate Sodium [Colace CAP] 100 mg PO BID #60 capsule Enoxaparin [Lovenox] 40 mg SUB-Q QDAY #7 syringe oxyCODONE /ACETAMINOPHEN [Percocet 5/325 mg] 2 tab PO Q6H PRN #60 tablet PRN Reason: Pain, Moderate (4-6)"
--- NOTE | 2016-04-22 11:18 | Progress Note ---
Assessment and Plan - Patient Problems (1) Breast cancer greater than or equal to 2 cm in greatest dimension Current Visit: Yes Status: Acute Plan to address problem: - s/p mastectomy - s/p reconstructive surgery - switch to oral analgesia and d/c [employer] pump - ambulate - discharge once OK with attending (2) Hypertension Current Visit: Yes Status: Chronic Qualifiers: Hypertension type: essential hypertension Qualified Code(s): I10 - Essential (primary) hypertension Plan to address problem: - resumed home losaartan/HCTZ yesterday (3) Discharge planning issues Current Visit: Yes Status: Acute Plan to address problem: - HOME today likely Subjective Date of service: 04/22/16 Principal diagnosis: Multicentric right breast cancer Interval history: Seen and examined at bedside; 24 hour events reviewed; nursing and respiratory care staff consulted; no adverse overnight events reported to me; continues to do well; no N/V/F/C; no wound dehiscence Objective Vital Signs - 12hr 04/21/16 04/22/16 04/22/16 23:58 00:00 04:00 Temperature 98.8 F 98.4 F Pulse Rate [ 100 H Left Radial] Respiratory 14 Rate Blood Pressure 101/55 04/22/16 08:00 Temperature 98.2 F Pulse Rate [ Left Radial] Respiratory Rate Blood Pressure Constitutional: no acute distress Eyes: non-icteric ENT: oropharynx moist Neck: supple, no lymphadenopathy Effort: normal Ascultation: Bilateral: clear Cardiovascular: regular rate and rhythm Gastrointestinal: normoactive bowel sounds, soft, non-tender, non-distended Integumentary: normal Extremities: no cyanosis, no edema, pulses normal, no ischemia or petechiae Neurologic: normal mental status, non-focal exam Psychiatric: mood appropriate, affect normal CBC and BMP: 04/20/16 07:32 04/20/16 07:32 ABG, PT/INR, D-dimer: PT/INR, D-dimer PT 13.0 Sec. (12.2-14.9) 04/16/16 12:06 INR 0.99 (0.87-1.13) 04/16/16 12:06 Abnormal lab findings: Abnormal Labs 04/16/16 04/16/16 04/16/16 12:06 12:06 12:35 WBC RBC 3.28 L Hgb Hct MCV 101 H MCH 34 H RDW 15.8 H [place] % (Auto) 9.5 H Potassium 3.3 L Glucose Crossmatch See Detail 04/20/16 04/20/16 07:32 07:32 WBC 12.5 H RBC 2.60 L Hgb 8.6 L Hct 26.1 L MCV 100 H MCH 33 H RDW 15.3 H [place] % (Auto) Potassium Glucose 108 H Crossmatch
[2016-04-22 12:38] VITALS: BP 115/60
== END 2016-04-22 12:00 | disposition home or self-care (01) | DRG 581 ==
LOC: OR 06:17 → CC1 16:53
PROVIDERS: ADMIT Surgery; ATTEND Surgery
PROC: 0HTV0ZZ Resection of Bilateral Breast, Open Approach (ICD-10-PCS; principal; 2016-04-19)
PROC: 07B50ZX Excision of Right Axillary Lymphatic, Open Approach, Diagnostic (ICD-10-PCS; 2016-04-19)
PROC: 07B80ZX Excision of Right Internal Mammary Lymphatic, Open Approach, Diagnostic (ICD-10-PCS; 2016-04-19)
PROC: 0HRV077 Replacement of Bilateral Breast using Deep Inferior Epigastric Artery Perforator Flap, Open Approach (ICD-10-PCS; 2016-04-19)
DX: C50.411 Malignant neoplasm of upper-outer quadrant of right female breast (principal); J45.909 Unspecified asthma, uncomplicated; I10 Essential (primary) hypertension; F41.9 Anxiety disorder, unspecified; Z87.891 Personal history of nicotine dependence
CPT/HCPCS: 36415; 71020; 78800; 80048; 80053; 84703; 85025; 85027; 85610; 85730; 86850; 86900; 86901; 86920; 88305; 88307; 88331; 88333; 88341; 88342; A9541; J0690; J1100; J1170; J1644; J1650; J2250; J2405; J2440; J2704; J2710; J7030; J7040; J7120; P9047